=== PATIENT | female | born 1975 | race Caucasian/White ===

== ENCOUNTER 2017-03-21 09:07 | Emergency (ER) | payer SELFPAY ==
[2017-03-21 09:12] VITALS: TEMP 98.2
[2017-03-21] MEDS ORDERED: DEXAMETHASONE 10 MG/ML VIAL IVP ONE (09:23)
[2017-03-21] MEDS ORDERED: METOCLOPRAMIDE 10 MG/2 ML VIAL IVP ONE (09:23)
[2017-03-21] MEDS ORDERED: NS 1,000 ML IV ONE ×2 (09:23→10:39)
--- NOTE | 2017-03-21 09:30 | EDPHY ---
H & P Stated Complaint: Migraine x 4 days; typical migraine Time Seen by Provider: 03/21/17 09:23 HPI/ROS: CHIEF COMPLAINT: Migraine HISTORY OF PRESENT ILLNESS: The patient is a 41 y/o female with a 2-year history of migraines complaining of a migraine for the last 4 days ago. She has been visiting from [place] for the last 4 days and attributes her symptoms to being at elevation. Her headache is the same as prior episodes and she reports frequent headaches. She denies vision changes, weakness, paresthesias, vomiting , or other symptoms. She usually treats her migraines with Excedrin and cannabinoid oil, but is out of CBD oil and says the Excedrin is no longer working. She has not seen a neurologist for her symptoms. She notes she had a facial abscess drained recently. REVIEW OF SYSTEMS: Constitutional: No fever, no chills Eyes: No visual changes ENT: No sore throat Respiratory: No cough, no shortness of breath Cardiac: No chest pain Gastrointestinal: No nausea, no vomiting, no abdominal pain Genitourinary: No hematuria, no dysuria Musculoskeletal: No leg pain or swelling Skin: No rash Neurological: see HPI Psychiatric: No depression - Personal History LMP (Females 10-55): 8-14 Days Ago Current Tetanus Diphtheria and Acellular Pertussis (TDAP): Yes - Medical/Surgical History PMH: PMH includes: 1. Migraines 2. Facial abscess 3. History of concussions Other PMH: migraines - Social History Smoking Status: Former smoker Additional Social History: Former smoker. From [place]. - Physical Exam Exam: General Appearance: Alert, no distress Eyes: Pupils equal and round, no conjunctival pallor or injection ENT, Mouth: Mucous membranes moist Neck: Normal inspection Respiratory: Lungs are clear to auscultation Cardiovascular: Regular rate and rhythm Gastrointestinal: Abdomen is soft and non- tender Neurological: Alert, oriented x3, cranial nerves II through XII intact, motor 5/ 5, sensory intact to light touch, normal gait Skin: Warm and dry, no rash Extremities: Nontender, no pedal edema Psychiatric: Mood and affect normal Constitutional: Initial Vital Signs Temperature (C) 36.8 C 03/21/17 09:09 Heart Rate 67 03/21/17 09:09 Respiratory Rate 18 03/21/17 09:09 Blood Pressure 122/66 H 03/21/17 09:09 O2 Sat (%) 97 03/21/17 09:09 O2 (L/minute) 1 Allergies/Adverse Reactions: No Known Allergies Allergy (Unverified 03/21/17 09:12) Home Medications: Medication Instructions Recorded Cbd Oil 03/21/17 Medical Decision Making - Diagnostics Imaging Results: CT head: NAD Imaging: Discussed imaging studies w/ drafter heating and ventilating Radiologist, I viewed and interpreted images myself ED Course/Re-evaluation: This is a 41 y/o female with a history of migraines complaining of a 4-day persistent headache. She has not been evaluated by a neurologist for her headaches, but states they are always the same and occur almost daily. No associated neuro symptoms. Her neurologic exam is completely normal. Due to severe daily headache without prior evaluation we will perform a head CT and manage symptoms with migraine cocktail. IV established. 1L IV NS, 10mg IV Reglan , 10mg IV Decadron, and 25mg IV Benadryl administered for symptoms. Reassessed patient and discussed work up. CT is negative. Neuro exam remains normal. Her symptoms have improved with medications, but she still has some headache symptoms. 30mg IV Toradol administered. Reassessed patient. Her symptoms have improved with medication. I recommended follow up with neurology without fail. She will be discharged home in good condition. Return precautions given. Differential Diagnosis: includes though not limited to ICH, tumor, hypoglycemia, tension GONZALES, sinusitis - Data Points Medications Given: Discontinued Medications Dexamethasone (Decadron Injection) 10 mg IVP EDNOW ONE Stop: 03/21/17 09:24 Last Admin: 03/21/17 09:58 Dose: 10 mg Diphenhydramine HCl (Benadryl Injection) 25 mg IVP EDNOW ONE Stop: 03/21/17 09:24 Last Admin: 03/21/17 09:58 Dose: 25 mg Sodium Chloride (Ns) 1,000 mls @ 0 mls/hr IV ONCE ONE; Wide Open PRN Reason: Protocol Stop: 03/21/17 09:24 Last Admin: 03/21/17 09:58 Dose: 1,000 mls Sodium Chloride (Ns) 1,000 mls @ 0 mls/hr IV ONCE ONE PRN Reason: Wide Open Stop: 03/21/17 10:40 Last Admin: 03/21/17 10:40 Dose: 1,000 mls Ketorolac Tromethamine (Toradol) 15 mg IVP EDNOW ONE Stop: 03/21/17 10:34 Last Admin: 03/21/17 10:39 Dose: Not Given Ketorolac Tromethamine (Toradol) 30 mg IVP EDNOW ONE Stop: 03/21/17 10:38 Last Admin: 03/21/17 10:38 Dose: 30 mg Metoclopramide HCl (Reglan Injection) 10 mg IVP EDNOW ONE Stop: 03/21/17 09:24 Last Admin: 03/21/17 09:58 Dose: 10 mg Departure - Departure Disposition: Home, Routine, Self-Care Clinical Impression: Migraine Qualifiers: Migraine type: without aura Status migrainosus presence: with status migrainosus Intractability: not intractable Qualified Code(s): G43.001 - Migraine without aura, not intractable, with status migrainosus Condition: Good Instructions: Migraine Headache (ED) Additional Instructions: 1. Follow up with a neurologist without fail in the next week to evaluate your migraines and discuss long-term treatment options. You've been referred to Dr. Gaxiola locally. 2. Return to the ED for vision changes, difficulty with speech, weakness or numbness on one side of your body, or other worsening of condition. Referrals: Epi Gaxiola DO [Medical Doctor] - As per Instructions Report Scribed for: Mayra Emery Report Scribed by: Madisyn Campuzano Date of Report: 03/21/17 Time of Report: 09:30 Physician Review and Approval Statement: 03/21/17 09:30 Portions of this note were transcribed by a medical cost consultant. I personally performed a history, physical exam, medical decision making, and confirmed accuracy of information the transcribed note.
[2017-03-21] MEDS ORDERED: KETOROLAC 15 MG/1 ML SDV IVP ONE (10:33)
[2017-03-21] MEDS ORDERED: KETOROLAC 30 MG/1 ML SDV ONE (10:34)
[2017-03-21] MEDS ORDERED: KETOROLAC 30 MG/1 ML SDV IVP ONE (10:37)
[2017-03-21 11:18] VITALS: BP 112/76; PULSE 78; RESP 16; O2SAT 98
== END 2017-03-21 11:18 | disposition home or self-care (01) ==
DX: G43.001 Migraine without aura, not intractable, with status migrainosus (principal); E86.9 Volume depletion, unspecified; Z87.891 Personal history of nicotine dependence
CPT/HCPCS: 96374; J1100; J1200; J1885; J2765